=== PATIENT | female | born 1990 | race Caucasian/White ===

== ENCOUNTER → 2023-11-29 06:45 | Outpatient (REF) | payer OTHER, SELFPAY | LOC: PNTC 06:45 | PROVIDERS: ATTENDING PHYSICIAN Obstetrics & Gynecology | DX: Z36.0 Encounter for antenatal screening for chromosomal anomalies (principal); Z36.82 Encounter for antenatal screening for nuchal translucency; O09.529 Supervision of elderly multigravida, unspecified trimester | CPT/HCPCS: 36415; 76801; 76813 ==

== ENCOUNTER → 2023-12-25 13:18 | Outpatient (REF) | payer OTHER, SELFPAY | LOC: PNTC 13:18 | PROVIDERS: ATTENDING PHYSICIAN Obstetrics & Gynecology | DX: O99.210 Obesity complicating pregnancy, unspecified trimester (principal); O13.9 Gestational [pregnancy-induced] hypertension without significant proteinuria, unspecified trimester; O34.219 Maternal care for unspecified type scar from previous cesarean delivery | CPT/HCPCS: 76805 ==

== ENCOUNTER → 2024-01-22 13:17 | Outpatient (REF) | payer OTHER, SELFPAY | LOC: PNTC 13:17 | PROVIDERS: ATTENDING PHYSICIAN Obstetrics & Gynecology | DX: O13.9 Gestational [pregnancy-induced] hypertension without significant proteinuria, unspecified trimester (principal); O34.219 Maternal care for unspecified type scar from previous cesarean delivery; O99.210 Obesity complicating pregnancy, unspecified trimester | CPT/HCPCS: 76811 ==

== ENCOUNTER → 2024-02-20 15:16 | Outpatient (REF) | payer OTHER, SELFPAY | LOC: PNTC 15:16 | PROVIDERS: ATTENDING PHYSICIAN Obstetrics & Gynecology | DX: O13.9 Gestational [pregnancy-induced] hypertension without significant proteinuria, unspecified trimester (principal); O99.210 Obesity complicating pregnancy, unspecified trimester; O34.219 Maternal care for unspecified type scar from previous cesarean delivery | CPT/HCPCS: 76816 ==

== ENCOUNTER → 2024-03-19 15:16 | Outpatient (REF) | payer OTHER, SELFPAY | LOC: PNTC 15:16 | PROVIDERS: ATTENDING PHYSICIAN Obstetrics & Gynecology | DX: O99.210 Obesity complicating pregnancy, unspecified trimester (principal); O34.219 Maternal care for unspecified type scar from previous cesarean delivery; O10.119 Pre-existing hypertensive heart disease complicating pregnancy, unspecified trimester | CPT/HCPCS: 76816 ==

== ENCOUNTER → 2024-04-24 06:57 | Outpatient (REF) | payer OTHER, SELFPAY | LOC: PNTC 06:57 | PROVIDERS: ATTENDING PHYSICIAN Obstetrics & Gynecology | DX: O99.210 Obesity complicating pregnancy, unspecified trimester (principal); O10.119 Pre-existing hypertensive heart disease complicating pregnancy, unspecified trimester; O34.219 Maternal care for unspecified type scar from previous cesarean delivery | CPT/HCPCS: 76816 ==

== ENCOUNTER → 2024-05-02 08:54 | Outpatient (REF) | payer OTHER, SELFPAY | LOC: PNTC 08:54 | PROVIDERS: ATTENDING PHYSICIAN Obstetrics & Gynecology | DX: O16.9 Unspecified maternal hypertension, unspecified trimester (principal); O99.210 Obesity complicating pregnancy, unspecified trimester; O34.219 Maternal care for unspecified type scar from previous cesarean delivery | CPT/HCPCS: 59025; 76815 ==

== ENCOUNTER → 2024-05-09 08:48 | Outpatient (REF) | payer OTHER, SELFPAY | LOC: PNTC 08:48 | PROVIDERS: ATTENDING PHYSICIAN Obstetrics & Gynecology | DX: O10.119 Pre-existing hypertensive heart disease complicating pregnancy, unspecified trimester (principal); O99.210 Obesity complicating pregnancy, unspecified trimester; O34.219 Maternal care for unspecified type scar from previous cesarean delivery | CPT/HCPCS: 59025; 76815 ==

== ENCOUNTER → 2024-05-16 08:48 | Outpatient (REF) | payer OTHER, SELFPAY | LOC: PNTC 08:48 | PROVIDERS: ATTENDING PHYSICIAN Obstetrics & Gynecology | DX: O10.119 Pre-existing hypertensive heart disease complicating pregnancy, unspecified trimester (principal); O99.210 Obesity complicating pregnancy, unspecified trimester; O34.219 Maternal care for unspecified type scar from previous cesarean delivery | CPT/HCPCS: 36415; 59025; 76815 ==

== ENCOUNTER → 2024-05-23 08:49 | Outpatient (REF) | payer OTHER, SELFPAY | LOC: PNTC 08:49 | PROVIDERS: ATTENDING PHYSICIAN Obstetrics & Gynecology | DX: O10.119 Pre-existing hypertensive heart disease complicating pregnancy, unspecified trimester (principal); O99.210 Obesity complicating pregnancy, unspecified trimester; O34.219 Maternal care for unspecified type scar from previous cesarean delivery | CPT/HCPCS: 59025; 76816 ==

== ENCOUNTER 2024-05-29 15:30 | Inpatient (IN) | payer OTHER, SELFPAY ==
[2024-05-29 14:43] VITALS: BP 165/90; BMI 34.3
[2024-05-29 15:10] LABS: Hematocrit 36.5 % (37.0-47.0); Hemoglobin 12.6 g/dL (12.0-16.0); Mean Corp Hgb Conc. 34.5 g/dL (33.0-37.0); Mean Corpuscular Hgb 30.1 pg (27.0-31.0); Mean Corpuscular Volume 87.1 fL (81.0-99.0); Mean Platelet Volume 9.6 fL (7.4-10.4); Platelet Count 323 10^3/uL (130-400); Red Blood Cell Count 4.19 10^6/uL (4.20-5.40); Red Cell Dist. Width 12.8 % (11.5-14.5)
[2024-05-29 15:22] LABS: ALT (SGPT) 17 U/L (0-35); AST (SGOT) 29 U/L (14-36); Albumin 4.1 g/dl (3.5-5.0); Alkaline Phosphatase 181 U/L (38-126); Blood Urea Nitrogen 5 mg/dl (7-17); Calcium 10.4 mg/dl (8.4-10.2); Carbon Dioxide 20 mmol/L (22-30); Chloride 107 mmol/L (98-107); Estimated Creatinine Clearance > 125 ml/min; Glucose 73 mg/dl (70-99); Potassium 3.6 mmol/L (3.5-5.1); Sodium 141 mmol/L (135-145); Total Bilirubin 0.7 mg/dl (0.2-1.3); Uric Acid 4.9 mg/dl (2.5-6.2); eGFR > 60.00
[2024-05-29 15:22] LABS: Urine Albumin Negative (Neg - Trace); Urine Bilirubin Negative (Negative); Urine Character Clear (Clear); Urine Color Yellow; Urine Glucose Negative (Negative); Urine Ketone 1+ (Negative); Urine Leukocyte Negative (Negative); Urine Nitrite Negative (Negative); Urine Occult Blood Negative (Negative); Urine Specific Gravity 1.005 (<1.030); Urine Urobilinogen Negative (Neg - 1+)
[2024-05-29 15:47] LABS: Protein/creatinine Ratio 1.3; Urine Protein 17 mg/dl
[2024-05-29] MEDS: BICITRA 30 ML PO (15:53)
[2024-05-29] MEDS: TYLENOL 1000 MG PO (15:53)
[2024-05-29] MEDS: ANCEF 10 IV (15:53)
--- NOTE | 2024-05-29 17:39 | W.IMMPOSTOP ---
Surgical Immed Post Op Note
-
Primary Surgeon: Lisa Schultz DO
Assisting Surgeon: Opal Ramires RN
Pre-op Diagnosis: at 38+4wks, pre-eclampsia, history of 2 prior c-sections
Post-op Diagnosis: s/p RLTCS, pre-eclampsia
Procedure Performed: RLTCS
Anesthesia Type: spinal
Specimen / Cultures: placenta
Estimated Blood Loss: 800ml (QBL pending)
Complications: none
Operative Findings: moderate amount of scarring present from previous c-sections; otherwise, normal uterus, b/l tubes and ovaries; male infant in the cephalic presentation, Apgars 8/9; nuchal cord x1; clear amniotic fluid
Kyaw Schultz DO
[2024-05-29] MEDS: TRANDATE 200 MG PO (19:42)
[2024-05-29] MEDS: TORADOL 15 MG IV (23:46)
[2024-05-29] MEDS: TORADOL IV (23:57)
[2024-05-30 05:04] LABS: Hematocrit 31.2 % (37.0-47.0); Mean Corp Hgb Conc. 35.3 g/dL (33.0-37.0); Mean Corpuscular Hgb 29.9 pg (27.0-31.0); Mean Corpuscular Volume 84.8 fL (81.0-99.0); Mean Platelet Volume 9.8 fL (7.4-10.4); Platelet Count 307 10^3/uL (130-400); Red Blood Cell Count 3.68 10^6/uL (4.20-5.40); Red Cell Dist. Width 12.6 % (11.5-14.5); White Blood Cell Count 17.6 10^3/uL (4.8-10.8)
[2024-05-30] MEDS: TORADOL 15 MG IV ×3 (05:56→17:47)
--- NOTE | 2024-05-30 07:40 | W.PN.ANS.POP ---
Anesthesia Post Operative
- Anesthesia Post Op Note
Vital Signs Stable-See Nursing Note: Yes
Airway Patent: Yes
Adequate Pain Control: Yes
Change in Mental Status: No
Current Postoperative Nausea & Vomiting: No
Anesthesia Complications: No
General Anesthetic Recall: No
Unplanned Admission: No
Post Op Hydration Adequate: Yes
[2024-05-30] MEDS: PRENATAL PLUS 1 TABLET PO (08:04)
[2024-05-30] MEDS: TRANDATE 200 MG PO ×2 (08:04→20:09)
[2024-05-30] MEDS: MYLICON 80 MG PO (21:00)
[2024-05-31] MEDS: MOTRIN 600 MG PO ×2 (00:13→06:15)
[2024-05-31] MEDS: TYLENOL 650 MG PO ×2 (02:05→06:15)
[2024-05-31] MEDS: PRENATAL PLUS 1 TABLET PO (08:48)
[2024-05-31] MEDS: TRANDATE 200 MG PO (08:48)
[2024-05-31] MEDS: SENOKOT-S 1 TABLET PO (08:54)
--- NOTE | 2024-05-31 10:22 | W.DS.TRANS ---
DC Summary - Otolaryngologist
-
Discharge Instructions:
Discharge Diagnosis/Procedures rcs
Diet No restrictions
Instructions:
Stand-Alone Forms: LDRP Delivery
Changes to Home Medications: No
Discharge Medications:
DC Medications w/original date entered in [facility]
Tablet 1 tab PO DAILY Supplement 05/29/24
ibuprofen 600 mg tablet 600 mg PO Q6HPRN PRN cramps #90 tabs 05/31/24
labetalol 200 mg tablet 200 mg PO BID #90 tabs 05/31/24
Home Medication Changes
Pending Results: No
Total time spent discharging patient (in min): 20
[2024-05-31 11:54] LABS: Syphilis/T. pallidum Ab Reflex Negative (Negative)
== END 2024-05-31 12:13 | disposition home or self-care (01) | DRG 788 ==
LOC: LDRP 15:30
PROVIDERS: ADMITTING PHYSICIAN Obstetrics & Gynecology; ATTENDING PHYSICIAN Obstetrics & Gynecology
PROC: 10D00Z1 Extraction of Products of Conception, Low, Open Approach (ICD-10-PCS; 2024-05-29)
DX: O13.4 Gestational [pregnancy-induced] hypertension without significant proteinuria, complicating childbirth (principal); O34.211 Maternal care for low transverse scar from previous cesarean delivery; O69.81X0 Labor and delivery complicated by cord around neck, without compression, not applicable or unspecified; Z3A.38 38 weeks gestation of pregnancy; Z37.0 Single live birth; N85.8 Other specified noninflammatory disorders of uterus
CPT/HCPCS: 88307; 59025; 80053; 81003; 82570; 84156; 84550; 85027; 86780; 86850; 86900; 86901